=== PATIENT | female | born 1930 | race African-American/Black ===

== ENCOUNTER 2018-09-17 18:54 | Inpatient (IN) | payer OTHER ==
[2018-09-17] VITALS (14 sets, daily range): BP systolic 121–175; BP diastolic 45–110
[~2018-09-17] VITALS: Ht 160 cm; Wt 61.0 kg
[2018-09-17] MEDS ORDERED: LABETALOL 5MG/ML SYR 20 MG/4 ML SYRINGE IV ONE (19:00)
[2018-09-17] MEDS ORDERED: ONDANSETRON HCL 4MG/2ML INJ IV ONE (19:00)
[2018-09-17] MEDS ORDERED: LABETALOL HCL 20MG/4ML CARPUJECT IV ONE (19:10)
[2018-09-17 19:14] LABS: BASOPHILS % 0.4 % (0.0-2.0); HEMATOCRIT. 37.7 % (36.0-48.0); HEMOGLOBIN. 12.2 g/dL (12.0-16.0); LYMPHOCYTES % 13.9 % (20.0-50.0); MEAN CORPUSCULAR HEMOGLOBIN 22.1 pg (28.0-32.0); MEAN CORPUSCULAR VOLUME 68.4 fL (81.0-99.0); MEAN PLATELET VOLUME 7.5 fl (7.4-10.4); MONOCYTES % 4.9 % (2.0-8.0); NEUTROPHILS % 80.8 % (40.0-76.0); PLATELET 313 x1000/uL (130-400); RED BLOOD CELL COUNT 5.52 mill/uL (4.2-5.4); RED CELL DISTRIBUTION WIDTH 16.3 % (11.6-14.6)
[2018-09-17] MEDS ORDERED: NICARDIPINE 50 MG in SODIUM CHLORIDE 0.9% 230 ML IV STA (19:18)
[2018-09-17 19:20] LABS: CHLORIDE 105 mEq/L (98-107)
[2018-09-17 19:24] LABS: ETHANOL BLOOD < 10 mg/dL
[2018-09-17 19:26] LABS: INR 1.1; PARTIAL THROMBOPLASTIN TIME 25.4 sec (23.4-31.0); PROTHROMBIN TIME 10.7 sec (9.1-11.1)
[2018-09-17 19:27] LABS: LDL CHOLESTEROL 116 mg/dL (5-100)
[2018-09-17 19:29] LABS: CREATINE KINASE 353 IU/L (26-192)
[2018-09-17] MEDS ORDERED: DEXAMETHASONE 10 MG/ML VIAL IV ONE (19:30)
[2018-09-17] MEDS ORDERED: MANNITOL 12.5G (25%) VIAL 50ML IV ONE (19:30)
[2018-09-17] MEDS ORDERED: LEVETIRACETAM 500MG PREMIX 100 ML IV ONE (19:30)
[2018-09-17] MEDS ORDERED: NICARDIPINE 40MG/200ML PREMIX 200 ML IV NR ×2 (19:30)
[2018-09-17] MEDS ORDERED: MANNITOL 20% 200 ML IV NR (19:45)
[2018-09-17] MEDS ORDERED: MANNITOL 20% 500 ML IV NR (19:45)
[2018-09-17 19:55] LABS: PLATELET ESTIMATE NORMAL
[2018-09-17] MEDS ORDERED: POTASSIUM CHLORIDE 20MEQ TABLET SR PO ONE (20:15)
[2018-09-17] MEDS ORDERED: MAGNESIUM 1 G PREMIX 100 ML IV ONE (20:15)
[2018-09-17] MEDS ORDERED: DEXAMETHASONE 4MG/ML 1ML VIAL IV ONE (20:30)
[2018-09-17] MEDS: DEXT 5%/LACTATED RINGERS 1,000 ML IV SCH (20:45)
[2018-09-17] MEDS ORDERED: IPRATROPIUM/ALBUTEROL 0.5-3(2.5)MG/3ML NEB INH PRN (21:15)
[2018-09-17] MEDS ORDERED: ACETAMINOPHEN 325MG TABLET PO PRN (21:15)
[2018-09-17] MEDS ORDERED: DOCUSATE SODIUM 100MG CAPSULE PO PRN (21:15)
[2018-09-17] MEDS ORDERED: ONDANSETRON HCL 4MG/2ML INJ IV PRN (21:15)
[2018-09-17] MEDS: LEVETIRACETAM 500 MG in SODIUM CHLORIDE 0.9% 100 ML IV SCH (22:02)
[2018-09-17 22:07] LABS: BG BASE EXCESS -2.7 mmol/L (-2.0-2.0); BG CARBOXYHEMOGLOBIN 1.1 % (0.5-1.5); BG DEOXYHEMOGLOBIN 1.1 % (0.0-5.0); BG FRACTION INSPIRED OXYGEN 32; BG HCO3 ACT 21.2 mmol/L (22.0-26.0); BG METHEMOGLOBIN 0.3 % (0.0-1.5); BG OXYGEN SATURATION 98.9 % (92.0-98.5); BG OXYHEMOGLOBIN 97.5 % (94.0-97.0); BG PCO2 33.8 mmHg (35.0-45.0); BG PH 7.415 (7.350-7.450); BG PO2 171.8 mmHg (75.0-100.0); BG SAMPLE SITE RIGHT RADIAL; BG TOTAL HEMOGLOBIN 11.9 g/dL (12.0-18.0); BG VENT MODE ROOM AIR
[2018-09-17] MEDS: PANTOPRAZOLE SODIUM 40 MG/VIAL IV SCH (22:10)
[2018-09-17] MEDS ORDERED: POTASSIUM CHLORIDE INJ 40 MEQ in DEXT 5% WATER 250 ML IV PRN (22:45)
[2018-09-17] MEDS ORDERED: POTASSIUM CHLORIDE INJ 40 MEQ in DEXT 5% WATER 250 ML IV NR (23:30)
[2018-09-18] VITALS (91 sets, daily range): BP systolic 105–158; BP diastolic 29–116
[2018-09-18] MEDS ORDERED: MANNITOL 20% (20GM/100ML) BAG 500ML PREMIX IV SCH
[2018-09-18] MEDS: NICARDIPINE 100 MG in SODIUM CHLORIDE 0.9% 60 ML IV PRN ×4 (00:01→23:48)
[2018-09-18 00:14] LABS: PROTHROMBIN TIME 10.4 sec (9.1-11.1)
[2018-09-18 00:28] LABS: CLARITY URINE CLEAR (CLEAR); COLOR URINE YELLOW (YELLOW); KETONES URINE TRACE (NEGATIVE); LEUKOCYTE ESTERASE URINE NEGATIVE (NEGATIVE); NITRITE URINE POSITIVE (NEGATIVE); OCCULT BLOOD URINE TRACE (NEGATIVE); PROTEIN URINE NEGATIVE (NEGATIVE); SPECIFIC GRAVITY URINE 1.014 (1.005-1.030); UROBILINOGEN URINE 0.2 E.U./dL (0.2-1.0)
[2018-09-18] MEDS: DEXAMETHASONE 4MG/ML 1ML VIAL IV SCH ×5 (00:52→23:57)
[2018-09-18] MEDS: MANNITOL 20% 100 ML IV SCH ×5 (05:26→23:50)
[2018-09-18 06:21] LABS: CHLORIDE 106 mEq/L (98-107)
[2018-09-18 06:28] LABS: LDL CHOLESTEROL 106 mg/dL (5-100)
[2018-09-18 06:29] LABS: HDL CHOLESTEROL 93 mg/dL (40-59)
[2018-09-18 06:30] LABS: CREATINE KINASE 436 IU/L (26-192); T4 FREE 0.97 ng/dL (0.76-1.46)
[2018-09-18] MEDS: BLOOD SUGAR DIAGNOSTIC STRIP TEST SCH ×4 (06:30→17:40)
[2018-09-18] MEDS: PANTOPRAZOLE SODIUM 40 MG/VIAL IV SCH (09:16)
[2018-09-18] MEDS: LEVETIRACETAM 500 MG in SODIUM CHLORIDE 0.9% 100 ML IV SCH ×2 (09:16→21:01)
[2018-09-18] MEDS ORDERED: DEXTROSE 50% WATER 50ML SYRINGE IV PRN (11:15)
[2018-09-18] MEDS: INSULIN LISPRO 100 UNITS/ML SUBCUT SCH ×2 (12:11→17:44)
[2018-09-18] MEDS ORDERED: POTASSIUM PHOS,M-BASIC-D-BASIC 15 MMOL in DEXT 5% WATER 245 ML IV NR (12:30)
[2018-09-18 12:55] LABS: BASOPHILS % 0.3 % (0.0-2.0); HEMATOCRIT. 37.8 % (36.0-48.0); HEMOGLOBIN. 11.9 g/dL (12.0-16.0); LYMPHOCYTES % 11.9 % (20.0-50.0); MEAN CORPUSCULAR HEMOGLOBIN 21.6 pg (28.0-32.0); MEAN CORPUSCULAR VOLUME 68.8 fL (81.0-99.0); MEAN PLATELET VOLUME 8.5 fl (7.4-10.4); MONOCYTES % 2.4 % (2.0-8.0); NEUTROPHILS % 85.4 % (40.0-76.0); PLATELET 319 x1000/uL (130-400); RED BLOOD CELL COUNT 5.49 mill/uL (4.2-5.4); RED CELL DISTRIBUTION WIDTH 16.1 % (11.6-14.6)
[2018-09-18] MEDS: DEXT 5%/LACTATED RINGERS 1,000 ML IV SCH (16:41)
[2018-09-19] VITALS (84 sets, daily range): BP systolic 108–156; BP diastolic 25–106
[2018-09-19] MEDS: BLOOD SUGAR DIAGNOSTIC STRIP TEST SCH ×4 (00:04→18:08)
[2018-09-19] MEDS: INSULIN LISPRO 100 UNITS/ML SUBCUT SCH ×4 (02:05→17:39)
[2018-09-19 05:39] LABS: BASOPHILS % 0.1 % (0.0-2.0); HEMATOCRIT. 36.9 % (36.0-48.0); HEMOGLOBIN. 11.6 g/dL (12.0-16.0); MEAN CORPUSCULAR HEMOGLOBIN 21.8 pg (28.0-32.0); MEAN CORPUSCULAR VOLUME 69.5 fL (81.0-99.0); MEAN PLATELET VOLUME 8.4 fl (7.4-10.4); MONOCYTES % 3.9 % (2.0-8.0); PLATELET 322 x1000/uL (130-400); RED BLOOD CELL COUNT 5.31 mill/uL (4.2-5.4); RED CELL DISTRIBUTION WIDTH 16.4 % (11.6-14.6)
[2018-09-19 05:48] LABS: CHLORIDE 110 mEq/L (98-107)
[2018-09-19 05:56] LABS: LDL CHOLESTEROL 96 mg/dL (5-100)
[2018-09-19 05:58] LABS: HDL CHOLESTEROL 98 mg/dL (40-59)
[2018-09-19] MEDS: DEXAMETHASONE 4MG/ML 1ML VIAL IV SCH ×2 (06:14→12:06)
[2018-09-19] MEDS: NICARDIPINE 100 MG in SODIUM CHLORIDE 0.9% 60 ML IV PRN ×2 (08:29→18:09)
[2018-09-19] MEDS: PANTOPRAZOLE SODIUM 40 MG/VIAL IV SCH (08:45)
[2018-09-19] MEDS: DEXT 5%/LACTATED RINGERS 1,000 ML IV SCH (08:46)
[2018-09-19 08:47] LABS: BG BASE EXCESS 0.2 mmol/L (-2.0-2.0); BG CARBOXYHEMOGLOBIN 0.2 % (0.5-1.5); BG DEOXYHEMOGLOBIN 2.8 % (0.0-5.0); BG FRACTION INSPIRED OXYGEN 28; BG HCO3 ACT 23.6 mmol/L (22.0-26.0); BG METHEMOGLOBIN 0.3 % (0.0-1.5); BG OXYGEN SATURATION 97.2 % (92.0-98.5); BG OXYHEMOGLOBIN 96.7 % (94.0-97.0); BG PCO2 33.8 mmHg (35.0-45.0); BG PH 7.461 (7.350-7.450); BG PO2 91.9 mmHg (75.0-100.0); BG SAMPLE SITE RIGHT BRACHIAL; BG TOTAL HEMOGLOBIN 11.4 g/dL (12.0-18.0); BG VENT MODE NASAL CANNULA
[2018-09-19] MEDS: LEVETIRACETAM 500 MG in SODIUM CHLORIDE 0.9% 100 ML IV SCH ×2 (08:51→22:21)
[2018-09-20] VITALS (79 sets, daily range): BP systolic 106–161; BP diastolic 55–102
[2018-09-20] MEDS: BLOOD SUGAR DIAGNOSTIC STRIP TEST SCH ×4 (00:42→17:15)
[2018-09-20] MEDS: INSULIN LISPRO 100 UNITS/ML SUBCUT SCH ×4 (00:50→17:15)
[2018-09-20] MEDS: NICARDIPINE 100 MG in SODIUM CHLORIDE 0.9% 60 ML IV PRN ×4 (01:44→22:43)
[2018-09-20] MEDS: DEXT 5%/LACTATED RINGERS 1,000 ML IV SCH ×2 (04:14→17:16)
[2018-09-20] MEDS: LEVETIRACETAM 500 MG in SODIUM CHLORIDE 0.9% 100 ML IV SCH ×2 (08:44→21:45)
[2018-09-20] MEDS: PANTOPRAZOLE SODIUM 40 MG/VIAL IV SCH (08:44)
[2018-09-20] MEDS: HYDRALAZINE 20MG/ML VIAL IV PRN (08:57)
[2018-09-20 09:08] LABS: BG BASE EXCESS 1.3 mmol/L (-2.0-2.0); BG CARBOXYHEMOGLOBIN 0.7 % (0.5-1.5); BG DEOXYHEMOGLOBIN 3.1 % (0.0-5.0); BG FRACTION INSPIRED OXYGEN 21; BG HCO3 ACT 26.5 mmol/L (22.0-26.0); BG METHEMOGLOBIN 0.1 % (0.0-1.5); BG OXYGEN SATURATION 96.9 % (92.0-98.5); BG OXYHEMOGLOBIN 96.1 % (94.0-97.0); BG PCO2 44.2 mmHg (35.0-45.0); BG PH 7.396 (7.350-7.450); BG PO2 89.3 mmHg (75.0-100.0); BG SAMPLE SITE RIGHT RADIAL; BG VENT MODE ROOM AIR
[2018-09-20 11:29] LABS: HEMATOCRIT 38.4 % (36.0-48.0); MEAN CORPUSCULAR HEMOGLOBIN 21.8 pg (28.0-32.0); MEAN CORPUSCULAR VOLUME 69.7 fL (81.0-99.0); PLATELET 337 x1000/uL (130-400); RED BLOOD CELL COUNT 5.51 mill/uL (4.2-5.4); RED CELL DISTRIBUTION WIDTH 16.4 % (11.6-14.6)
[2018-09-20 12:15] LABS: CHLORIDE 117 mEq/L (98-107)
[2018-09-20] MEDS: LEVOFLOXACIN 750MG PREMIX 150 ML IV SCH (12:29)
[2018-09-20] MEDS: LOSARTAN POTASSIUM 25 MG TABLET PO SCH (13:54)
[2018-09-20] MEDS ORDERED: MORPHINE SULFATE 4 MG/ML CPJ (NOT FOR IM USE) IV PRN (14:15)
[2018-09-20] MEDS: AMLODIPINE 5MG TABLET PO SCH (20:14)
[2018-09-20] MEDS: METOPROLOL TARTRATE 25MG TABLET PO SCH (20:14)
[2018-09-21] VITALS (42 sets, daily range): BP systolic 117–157; BP diastolic 58–105
[2018-09-21] MEDS: BLOOD SUGAR DIAGNOSTIC STRIP TEST SCH ×4 (00:57→18:00)
[2018-09-21] MEDS: INSULIN LISPRO 100 UNITS/ML SUBCUT SCH ×4 (01:03→18:00)
[2018-09-21 05:35] LABS: HEMATOCRIT. 38.8 % (36.0-48.0); HEMOGLOBIN. 12.1 g/dL (12.0-16.0); MEAN CORPUSCULAR HEMOGLOBIN 21.6 pg (28.0-32.0); MEAN CORPUSCULAR VOLUME 69.2 fL (81.0-99.0); MEAN PLATELET VOLUME 8.5 fl (7.4-10.4); PLATELET 322 x1000/uL (130-400); RED BLOOD CELL COUNT 5.61 mill/uL (4.2-5.4); RED CELL DISTRIBUTION WIDTH 16.2 % (11.6-14.6)
[2018-09-21 06:25] LABS: CHLORIDE 117 mEq/L (98-107)
[2018-09-21] MEDS: NICARDIPINE 100 MG in SODIUM CHLORIDE 0.9% 60 ML IV PRN (07:40)
[2018-09-21] MEDS: DEXT 5%/LACTATED RINGERS 1,000 ML IV SCH ×2 (07:41→20:32)
[2018-09-21] MEDS: METOPROLOL TARTRATE 25MG TABLET PO SCH ×2 (09:33→22:17)
[2018-09-21] MEDS: PANTOPRAZOLE SODIUM 40 MG/VIAL IV SCH (09:33)
[2018-09-21] MEDS: AMLODIPINE 5MG TABLET PO SCH ×3 (09:33→22:16)
[2018-09-21] MEDS: LOSARTAN POTASSIUM 25 MG TABLET PO SCH ×2 (09:33→21:00)
[2018-09-21] MEDS: LEVETIRACETAM 500 MG in SODIUM CHLORIDE 0.9% 100 ML IV SCH ×2 (09:49→21:27)
[2018-09-21 12:13] LABS: PLATELET ESTIMATE NORMAL
[2018-09-22] VITALS (63 sets, daily range): BP systolic 100–153; BP diastolic 46–97
[2018-09-22] MEDS: NICARDIPINE 100 MG in SODIUM CHLORIDE 0.9% 60 ML IV PRN (00:23)
[2018-09-22] MEDS: BLOOD SUGAR DIAGNOSTIC STRIP TEST SCH ×5 (00:25→23:52)
[2018-09-22 05:30] LABS: HEMATOCRIT. 41.3 % (36.0-48.0); HEMOGLOBIN. 12.9 g/dL (12.0-16.0); MEAN CORPUSCULAR HEMOGLOBIN 21.8 pg (28.0-32.0); MEAN CORPUSCULAR VOLUME 70.2 fL (81.0-99.0); MEAN PLATELET VOLUME 8.8 fl (7.4-10.4); PLATELET 270 x1000/uL (130-400); RED BLOOD CELL COUNT 5.89 mill/uL (4.2-5.4)
[2018-09-22 05:40] LABS: CHLORIDE 114 mEq/L (98-107)
[2018-09-22] MEDS: INSULIN LISPRO 100 UNITS/ML SUBCUT SCH ×5 (06:00→23:55)
[2018-09-22] MEDS: HYDRALAZINE 20MG/ML VIAL IV PRN (06:46)
[2018-09-22] MEDS: AMLODIPINE 5MG TABLET PO SCH (06:47)
[2018-09-22] MEDS: LEVETIRACETAM 500 MG in SODIUM CHLORIDE 0.9% 100 ML IV SCH (08:55)
[2018-09-22] MEDS: PANTOPRAZOLE SODIUM 40 MG/VIAL IV SCH (08:56)
[2018-09-22] MEDS: LOSARTAN POTASSIUM 25 MG TABLET PO SCH ×2 (08:56→17:00)
[2018-09-22] MEDS: METOPROLOL TARTRATE 25MG TABLET PO SCH ×2 (08:56→20:15)
[2018-09-22 11:25] LABS: PLATELET ESTIMATE NORMAL
[2018-09-22] MEDS: LEVOFLOXACIN 750MG PREMIX 150 ML IV SCH (13:00)
[2018-09-22] MEDS: AMLODIPINE 10MG TABLET PO SCH (17:00)
[2018-09-22] MEDS: DEXT 5%/LACTATED RINGERS 1,000 ML IV SCH (17:25)
[2018-09-22] MEDS: LEVETIRACETAM 250 MG in SODIUM CHLORIDE 0.9% 100 ML IV SCH (20:16)
[2018-09-23] VITALS (96 sets, daily range): BP systolic 110–167; BP diastolic 53–108
[2018-09-23] MEDS: NICARDIPINE 100 MG in SODIUM CHLORIDE 0.9% 60 ML IV PRN (00:04)
[2018-09-23] MEDS: BLOOD SUGAR DIAGNOSTIC STRIP TEST SCH ×3 (05:20→17:42)
[2018-09-23] MEDS: INSULIN LISPRO 100 UNITS/ML SUBCUT SCH ×3 (05:20→18:00)
[2018-09-23] MEDS: PANTOPRAZOLE SODIUM 40 MG/VIAL IV SCH (09:12)
[2018-09-23] MEDS: LEVETIRACETAM 250 MG in SODIUM CHLORIDE 0.9% 100 ML IV SCH ×2 (09:12→20:35)
[2018-09-23] MEDS: LOSARTAN POTASSIUM 25 MG TABLET PO SCH ×3 (09:12→17:09)
[2018-09-23] MEDS: METOPROLOL TARTRATE 25MG TABLET PO SCH ×2 (09:13→21:33)
[2018-09-23] MEDS: AMLODIPINE 10MG TABLET PO SCH ×2 (09:13→17:09)
[2018-09-23] MEDS: HYDRALAZINE 20MG/ML VIAL IV PRN (10:46)
[2018-09-23] MEDS: DEXT 5%/LACTATED RINGERS 1,000 ML IV SCH (10:48)
== END 2018-09-23 22:30 | disposition short-term general hospital (02) | DRG 64 ==
LOC: ER 18:54 → MICUNO 19:43 → EDBEDREQ 19:43 → ENRESERV 20:01
PROVIDERS: ADMIT Family Medicine Adult Medicine; ATTEND Family Medicine Adult Medicine
PROC: 05HY33Z Insertion of Infusion Device into Upper Vein, Percutaneous Approach (ICD-10-PCS; principal; 2018-09-23)
PROC: B54MZZA Ultrasonography of Right Upper Extremity Veins, Guidance (ICD-10-PCS; 2018-09-23)
DX: I61.8 Other nontraumatic intracerebral hemorrhage (principal); G93.6 Cerebral edema; J96.00 Acute respiratory failure, unspecified whether with hypoxia or hypercapnia; M62.82 Rhabdomyolysis; G93.40 Encephalopathy, unspecified; N39.0 Urinary tract infection, site not specified; E87.0 Hyperosmolality and hypernatremia; I16.1 Hypertensive emergency; I69.351 Hemiplegia and hemiparesis following cerebral infarction affecting right dominant side; E87.6 Hypokalemia; E78.00 Pure hypercholesterolemia, unspecified; E78.5 Hyperlipidemia, unspecified; E83.42 Hypomagnesemia; E04.1 Nontoxic single thyroid nodule; I11.9 Hypertensive heart disease without heart failure; M47.9 Spondylosis, unspecified; M48.02 Spinal stenosis, cervical region; R13.10 Dysphagia, unspecified; T38.0X5A Adverse effect of glucocorticoids and synthetic analogues, initial encounter; R40.2410 Glasgow coma scale score 13-15, unspecified time; R73.9 Hyperglycemia, unspecified; E83.39 Other disorders of phosphorus metabolism; W18.39XA Other fall on same level, initial encounter; Y93.89 Activity, other specified; Y92.091 Bathroom in other non-institutional residence as the place of occurrence of the external cause; Z91.81 History of falling; Y99.8 Other external cause status; Z78.1 Physical restraint status
CPT/HCPCS: 36415; 36569; 36600; 70544; 70553; 71045; 76937; 80048; 80061; 82375; 82550; 82805; 82962; 83036; 83721; 83735; 83880; 84100; 84134; 84439; 84443; 84484; 85027; 85384; 86850; 86900; 92523; 92610; 93005; 93306; 93880; 93970; 96365; 96375; 97162; 99291; A6261; C1725; C9113; G0482; J0360; J1100; J1815; J1953; J1956; J2150; J2405; J3475; J3480; J3490; J7050; J7060; J7121; A4315